=== PATIENT | male | born 1950 | race Two or more races ===

== ENCOUNTER 2016-10-05 22:39 | Emergency (ER) | payer SELFPAY ==
--- NOTE | ~2016-10-05 | ER ---
PATIENT'S NAME: RUMA MAYBERRY [facility] AGE: 65 Y [address] ROOM: [place], [place] [address] LOCATION: ED ADMIT DATE: 10/05/2016 ER/Outpatient Report DISCHARGE DATE: 10/06/2016 FAMILY PHYSICIAN: PHYSICIAN, NO ATTENDING PHYSICIAN: Janet Jacobo HISTORY OF PRESENT ILLNESS: The patient was initially seen by, KALPESH Yates, please refer to her dictation. At midnight, I assumed care at her shift change. History was reviewed with the patient and family. Physical exam was confirmed. His pain was better after he had received fentanyl. The patient has had a pain in right side of his abdomen since Monday. It got worse 1 hour ago all along the right side of his abdomen. He has had nausea and vomited x1. No diarrhea. No constipation. Last bowel movement was today and normal. No blood in his stools. No dark, tarry, or black stools. He had similar pain 1 year ago in [place] and was diagnosed with gallstones. Recommended removal of his gallbladder which he declined at that time. He has done well since then. PAST MEDICAL HISTORY: ALLERGIES: NO KNOWN DRUG ALLERGIES. CURRENT MEDICATIONS: No current medications. MEDICAL PROBLEMS: No medical problems SOCIAL HISTORY: The patient lives in [place], arrived here for visiting and planned to be here 1 more week. Tobacco use, denies. Alcohol use, occasional. Drug use, denies. REVIEW OF SYSTEMS: All systems reviewed and negative other than what is noted in the HPI. Specifically, the patient has no chest pain. No cough or shortness of breath and currently his pain is improved from 9 to 4 or 5. SURGERIES: He had previous hernia repair. FAMILY HISTORY: PATIENT'S NAME: RUMA MAYBERRY [facility] AGE: 65 Y [address] ROOM: [place], [place] [address] LOCATION: [facility] ADMIT DATE: 10/05/2016 ER/Outpatient Report DISCHARGE DATE: 10/06/2016 FAMILY PHYSICIAN: PHYSICIAN, OMA ATTENDING PHYSICIAN: Janet Jacobo No pertinent family history. PHYSICAL EXAMINATION: VITAL SIGNS: Weight 100.1 kg, blood pressure 192/117 and on recheck was 183/98. Pulse 92, respirations 18, temperature 98.2, and saturations 94%. GENERAL: A 65-year-old male in obvious distress HEENT: Unremarkable. LUNGS: Clear to auscultation. HEART: Regular rate and rhythm. No murmur, rub, or gallop. ABDOMEN: Bowel sounds present. Soft, slightly distended. No hepatosplenomegaly. No palpable masses. Tender to palpation in the right upper quadrant. No rebound or guarding. No CVA tenderness. SKIN: [place], warm, and dry. No lesions or rashes noted. NEURO: No focal deficit. LABORATORY DATA: Labs were reviewed. Hemoglobin 16.4, hematocrit 46.6, platelets 207, white count 13.6 with 86% neutrophils. Sodium 139, potassium 3.8, chloride 104, CO2 25, BUN 7, creatinine 0.9, blood sugar 198, total bilirubin elevated at 2.2, AST 79, ALT 223, amylase 29, lipase 80. UA negative. IMAGING: CT scan of the abdomen and pelvis with IV contrast, cholelithiasis with mild gallbladder wall thickening. No additional stigmata of cholecystitis and mild dependent atelectasis in both lung bases. IMPRESSION AND PLAN: Cholelithiasis with persistent pain and elevated liver enzymes. The patient would not like to stay here in the hospital, but does agree to go home. Clear liquids as tolerated. [place] 5/325 one p.o. q.4-6 hours p.r.n. pain, dispensed 15 with 0 refills. Zofran 4 mg q.6 hours p.r.n. nausea. Follow up at the [facility] later this morning with General Surgery. The patient and his family understand and agree. They do understand the risks with his elevated liver enzymes of this becoming a more emergent problem and any complications and all questions have been answered. JANET JACOBO MD CAR/modl /[id number] d: 10/06/16 0604 t: 10/16/1630, OUTPATIENT REPORT
--- NOTE | ~2016-10-05 | ER ---
PATIENT'S NAME: RUMA MAYBERRY [facility] AGE: 65 Y [address] ROOM: [place] [address] LOCATION: [facility] ADMIT DATE: 10/05/2016 ER/Outpatient Report DISCHARGE DATE: 10/06/2016 FAMILY PHYSICIAN: PHYSICIAN, NO ATTENDING PHYSICIAN: Janet Jacobo TIME OF PATIENT ARRIVAL: 2239 hours. TIME OF PATIENT EVALUATION: 2324 hours. CHIEF COMPLAINT: Right-sided abdominal pain. HISTORY OF PRESENT ILLNESS: This is a 65-year-old [id number] male, who presents to the ER, who states he has been having some abdominal pain that started on Monday and worsened an hour prior to arrival. The patient states he just came here from [place] and arrived a few days ago. The patient states that he had a similar episode of pain like this a year ago down in [place], and he took some medication which improved his symptoms. The patient has not been running any fevers at home and has had no troubles with bowel movements or urination. ALLERGIES: NO KNOWN ALLERGIES. MEDICATIONS: None. PAST MEDICAL HISTORY: Negative. PAST SURGICAL HISTORY: None. SOCIAL HISTORY: He drinks alcohol occasionally. Denies any smoking use. REVIEW OF SYSTEMS: A 10-point review of systems was completed and was negative with the exception of those discussed in the HPI. PHYSICAL EXAMINATION: VITAL SIGNS: Weight 100.1 kg taken, blood pressure is 192/117, pulse 92, PATIENT'S NAME: RUMA MAYBERRY [facility] AGE: 65 Y [address] ROOM: [place] [address] LOCATION: [facility] ADMIT DATE: 10/05/2016 ER/Outpatient Report DISCHARGE DATE: 10/06/2016 FAMILY PHYSICIAN: PHYSICIAN, NO ATTENDING PHYSICIAN: Janet Jacobo respirations 18, temperature 99.2 degrees tympanically, and saturation is 94% on room air. [place] Coma Score is 15. GENERAL: Alert, calm, well-developed male in tptw-[id number] distress. HEENT. Head: Normocephalic. Eyes: Pupils are equal and reactive to light. He does display moist mucous membranes. LUNGS: Clear to auscultation bilaterally. No wheezes or crackles are heard. HEART: Regular rate and rhythm. ABDOMEN: Soft. He does have tenderness with palpation over the entire right side of his abdomen. He has no guarding. No rebound tenderness. He has good bowel sounds throughout. No masses are palpated. EXTREMITIES: No clubbing or cyanosis. He does have full range of motion of all limbs. LABORATORY DATA: Labs and CT are all pending. EMERGENCY ROOM COURSE: I am going to turn the care of the patient over to Dr. Jacobo at this time secondary to shift change. During his ER course here with me, I did start an IV with him and did order fentanyl and IV fluids for the patient. The patient and the patient's family understand and agree with care. DENNIS JOHNSON PA-C FOR MD DEB DAMON/franck /[id number] d: t: 10/09/16 1901, OUTPATIENT REPORT
[2016-10-06 00:10] LABS: BASOPHIL % 0.3 %; EOSINOPHIL % 0.3 %; HEMATOCRIT 46.6 % (37.0-53.0); HEMOGLOBIN 16.4 g/dL (11.0-16.0); IMMATURE GRANULOCYTE # 0.1 K/uL (0.0-0.3); IMMATURE GRANULOCYTE % 0.5 %; LYMPHOCYTE # 1.1 K/uL (0.8-4.0); LYMPHOCYTE % 7.9 %; MCH 31.8 pg (27.0-34.0); MCHC 35.2 gm/dL (32.0-36.5); MCV 90.3 fl (83.0-98.0); MONOCYTE # 0.6 K/uL (0.0-1.0); MONOCYTE % 4.6 %; MPV 10.4 fl (9.4-12.4); NEUTROPHIL # (ANC) 11.8 K/uL (1.4-9.0); NEUTROPHIL % 86.4 %; NRBC % 0 /100WBC (0-0.00); PLATELET COUNT 207 K/uL (150-450); RBC 5.16 M/uL (3.50-5.50); RDW-CV 13.1 % (11.9-14.6); WBC 13.6 K/uL (4.0-11.0)
[2016-10-06 00:27] LABS: ALBUMIN 3.5 gm/dL (3.5-5.0); ALK PHOS 123 IU/L (33-138); ALT 223 IU/L (12-78); ANION GAP 13.8 (10.0-19.0); AST 79 IU/L (10-40); BLOOD UREA NITROGEN 7 mg/dL (6-24); CALCIUM 9.1 mg/dL (8.5-10.5); CHLORIDE 104 mMol/L (96-110); CO2 25 mMol/L (22-32); CREATININE 0.9 mg/dL (0.6-1.3); ESTIMATED GFR (MDRD EQUATION) > 60; POTASSIUM 3.8 mMol/L (3.7-5.1); SODIUM 139 mMol/L (135-145); TOTAL BILIRUBIN 2.2 mg/dL (0.0-1.5); TOTAL PROTEIN 7.7 g/dL (6.0-8.4)
[2016-10-06 00:38] LABS: BILIRUBIN URINE NEGATIVE (NEGATIVE); BLOOD URINE NEGATIVE /UL (NEGATIVE); GLUCOSE URINE 50 mg/dL (NEGATIVE); KETONE URINE NEGATIVE (NEGATIVE); LEUKOCYTES URINE 25 /UL (NEGATIVE); NITRITE URINE NEGATIVE (NEGATIVE); PROTEIN URINE 100 mg/dL (NEGATIVE); UROBILINOGEN URINE 1 mg/dL (NORMAL)
[2016-10-06 00:40] LABS: COLOR URINE YELLOW (YELLOW); TURBIDITY URINE CLEAR (CLEAR)
[2016-10-06 00:55] LABS: WBC URINE 0-2 #/HPF (NEGATIVE)
[2016-10-06 00:56] LABS: BACTERIA URINE NEGATIVE (NEGATIVE); EPITHELIAL URINE 0-2 #/HPF (NEGATIVE); RBC URINE RARE #/HPF (NEGATIVE)
== END 2016-10-06 01:42 | disposition disaster alternative care site (69) ==
LOC: GMED 22:39
PROVIDERS: Physician Assistant Medical
DX: K80.20 Calculus of gallbladder without cholecystitis without obstruction (principal)
CPT/HCPCS: J2405; J3010; J7030; Q9967

== ENCOUNTER 2016-10-06 05:36 | Inpatient (IN) | payer SELFPAY ==
[~2016-10-06] VITALS: Ht 172 cm; Wt 96.4 kg
--- NOTE | ~2016-10-06 | DS ---
PATIENT'S NAME: GEORGE MABRY [facility] AGE: 65 Y [address] ROOM: [address] [address] LOCATION: [facility] ADMIT DATE: 10/06/2016 Discharge Summary DISCHARGE DATE: 10/09/2016 FAMILY PHYSICIAN: PHYSICIAN, NO ATTENDING PHYSICIAN: Christiano Ferreira V FINAL DIAGNOSES: 1. Acute gangrenous cholecystitis with bile leak. 2. Essential hypertension. 3. Adult-onset diabetes mellitus. 4. Nocturnal hypoxia. 5. Acute hypoxic respiratory failure, resolved. PROCEDURE: He had a lap neena with Dr. Carson. HISTORY OF PRESENT ILLNESS: For details of admission, please see the history and physical dictated by Dr. Ferreira. In short, the patient had presented to the emergency room with severe pain in the right upper quadrant and had decided to go home. The pain worsened and returned; and at that time, he was diagnosed with acute cholecystitis. LABORATORY DATA: On admission, sodium 139, discharge 139; potassium on admit 3.8, discharge 3.9; BUN on admission was 7, discharge 14; creatinine on admission 0.9, discharge 1.2; alk phos on admission 123, 79 on discharge; AST on admission was 79, discharge 51; ALT on admission was 223, 99 at discharge. Cardiac enzymes were negative. Hemoglobin A1c 7.5. White blood cell count on admission was 13.6 with a left shift, on the second hospital day, white blood cell count was 19.2 with 13% bands, hemoglobin at discharge is 15.2, and platelet count 214. RADIOLOGIC DATA: CT scan of the abdomen and pelvis done for right-sided abdominal pain showed cholelithiasis and pericholecystic fluid. He had a 4-mm nodule in the posterior right lung base. Right upper quadrant ultrasound did show evidence of cholelithiasis and gallbladder wall thickening. Chest x-ray done on 2nd hospital day done for hypoxia did show atelectasis. HOSPITAL COURSE: The patient was admitted from the emergency room with a diagnosis of acute cholecystitis. He was admitted and placed on IV antibiotics. He was seen by surgery and felt to be a candidate for surgery. He was taken to the OR and had a lap neena. They did say that his gallbladder had perforated and he did have localized bile peritonitis. He was admitted back to the floor. During the initial day of hospitalization, he had accelerated hypertension and his blood pressures were very difficult to control and required numerous IV medications. Finally, did have nitro paste placed, which did help with his blood pressures. On hospital day, he was PATIENT'S NAME: GEORGE MABRY [facility] AGE: 65 Y [address] ROOM: [place] [address] LOCATION: [facility] ADMIT DATE: 10/06/2016 Discharge Summary DISCHARGE DATE: 10/09/2016 FAMILY PHYSICIAN: OMA YUNG ATTENDING PHYSICIAN: Christiano Ferreira V initiated on medication for his blood pressure. His blood sugars were also noted to be elevated. He was started on metformin and hemoglobin A1c was obtained. He did require oxygen on admission at 6 L per nasal cannula. By 2nd hospital day, we had it weaned down to 4 and he was gradually able to be weaned off. He did have an overnight trend oximetry that did indicate he would qualify for home O2; however, the patient is going home to [place]. It was felt that he was stable for discharge and was discharged to home on October 09. His instructions were to follow diabetic diet. We will attempt to get him diabetic education in [place]. He is advised to see his family doctor in [place] upon return. MEDICATIONS: 1. Prinivil 10 mg daily. 2. Glucophage 500 mg twice daily. PROGNOSIS: Overall, prognosis at discharge was good. BRANDEN CATALAN MD LAW/modl /[id number] d: 10/10/16 0003 t: 10/11/16 1451, DISCHARGE SUMMARY
--- NOTE | ~2016-10-06 | CON ---
PATIENT'S NAME: GEORGE MABRY [facility] AGE: 65 Y [address] ROOM: [address] [address] LOCATION: [facility] ADMIT DATE: 10/06/2016 Consultation DISCHARGE DATE: FAMILY PHYSICIAN: PHYSICIAN, NO ATTENDING PHYSICIAN: MADELIN MARAVILLA V DATE OF CONSULTATION: 10/06/2016 REFERRING PHYSICIAN: Paul Pfeiffer MD CHIEF COMPLAINT: Acute cholecystitis. HISTORY OF PRESENT ILLNESS: George is a 65-year-old, male, who was admitted early this morning to the Hospitalist with cholecystitis. The patient states that he ate [place] barbecue around 4:00 p.m. yesterday. Shortly after that, he did not feel well and became nauseated, bloated, and he started having pain in the right side of his abdomen. The pain became worse around 7 p.m. last evening. The patient presented to the emergency room and was subsequently discharged home with oral pain medication. He returned to the emergency room later in the night with recurrent abdominal pain. He was admitted at that time under the Hospitalist and a general surgeon was consulted. At this time, the patient states that he has "something inside that bothers me," but it is much better than it was last night. He denies any history of jaundice, hepatitis, or pancreatitis. He states that he has known of gallbladder issues for about 1 year. He states that a surgeon in [place] wanted to remove it, but the patient declined at that time. He states that he has only had issues one other time. PAST MEDICAL HISTORY: ALLERGIES: NONE. MEDICATIONS: None. ILLNESSES: Hypertension. Denies any history of heart disease or cancer. OPERATIONS: He had a hernia repair done in [place], he is unsure whether any mesh was utilized or not. PATIENT'S NAME: GEORGE MABRY [facility] AGE: 65 Y [address] ROOM: [address] [address] LOCATION: N ADMIT DATE: 10/06/2016 Consultation DISCHARGE DATE: FAMILY PHYSICIAN: PHYSICIAN, NO ATTENDING PHYSICIAN: MADELIN MARAVILLA V SOCIAL HISTORY: The patient is . Just recently moved to [place], [place]. He is a nonsmoker. Occasionally consumes alcohol. FAMILY HISTORY: No family history of cancer. There is family history of diabetes. REVIEW OF SYSTEMS: The patient's weight has been stable. He denies any fevers, but does have chills. Denies any sinus congestion, ear pain, or throat pain. No shortness of breath. No chest pain. His bowels have been working okay prior to admission. He does complain of a slow urine stream. PHYSICAL EXAMINATION: VITAL SIGNS: Temperature is 99.1, blood pressure 187/91, pulse 105, and respirations 18. GENERAL: A 65-year-old, male, who is alert and appropriate with responses. He is non-Nepalese speaking, so the entire history and exam was done with the [facility]. 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 HEENT: Eyes: Sclerae are nonicteric. He does have poor dentition, missing at least half of his teeth. LUNGS: Clear, but he is taking shallow breaths. HEART: Regular. ABDOMEN: Bowel sounds are present. Abdomen is mildly distended, very tender in the right upper quadrant. He has a scar at the umbilicus consistent with his prior hernia repair. LABORATORY DATA: Lab work shows white blood cell count 13.6, hemoglobin 16.4, hematocrit 46.6, and platelets 207. Sodium 139, potassium 3.8, chloride 104, CO2 of 25, BUN 7, creatinine 0.9, and glucose 198. Total bilirubin 2.2, alkaline phosphatase 123, AST 79, ALT 223, amylase 29, and lipase 80. Ultrasound showed gallstones with mild gallbladder wall thickening. No pericholecystic fluid. Common bile duct was within normal limits. CT showed gallstones, small amount of pericholecystic fluid, and an incidental 4-mm noncalcified lung nodule with followup recommended. ASSESSMENT: A 65-year-old male with, 1. Acute cholecystitis. 2. Hypertension. PLAN: I discussed the findings with the patient and his family through the [facility]. Translation System. I discussed recommendations for removal of the PATIENT'S NAME: GEORGE MABRY [facility] AGE: 65 Y [address] ROOM: [id number] [place], [place] [address] LOCATION: [facility] ADMIT DATE: 10/06/2016 Consultation DISCHARGE DATE: FAMILY PHYSICIAN: PHYSICIAN, NO ATTENDING PHYSICIAN: MADELIN MARAVILLA. Alternatively, we could try to cool this off with antibiotics, but he would be at high risk for recurrence of the cholecystitis. The operation including laparoscopic and open were discussed with expectation for the patient to be discharged home tomorrow if done laparoscopically with return to usual activities within 7-10 days. I discussed risks of bleeding, infection, injury to other structures, etc. The family did ask whether or not it would be reasonable to start antibiotics with plans to return to [place] for the operation. Ultimately, the patient decided that he was having enough pain that he would prefer to just go ahead and proceed here today if possible. I discussed with them that Dr. Carson will be stopping by in the next couple hours to review things and make his recommendations. Tentatively, we will plan to proceed with surgery this afternoon if he agrees with the assessment and plan as documented above. The family was in understanding and agreement with this. I will go ahead and start Mefoxin 1 g IV q.6 hours. He is having significantly elevated blood pressures at this time, which I believe is a combination of his history of hypertension that has been untreated along with inadequate pain control. Again, Dr. Carson will be seeing the patient momentarily, is involved in assessment and plan, and is available for supervision. MONA ROUSE PA-C FOR MD ARIANNA AUGUSTINK/franck /[id number] d: 10/06/161912 t: 10/24/16 0941, CONSULTATION REPORT
--- NOTE | ~2016-10-06 | ER ---
PATIENT'S NAME: RUMA MAYBERRY [facility] AGE: 65 Y [address] ROOM: [place] [address] LOCATION: [facility] ADMIT DATE: 10/06/2016 ER/Outpatient Report DISCHARGE DATE: FAMILY PHYSICIAN: PHYSICIAN, NO ATTENDING PHYSICIAN: Asher Darnell Time of Arrival: 0536 hours. Time of Evaluation: 0539 hours. IDENTIFICATION: A 65-year-old male. CHIEF COMPLAINT: Right-sided abdominal pain. HISTORY OF PRESENT ILLNESS: The patient is a 65-year-old, male from [place] here visiting arrived a few days ago who presents with right-sided abdominal pain. He was seen here last evening at 2257 hours and discharged. Please refer to that dictation. The patient took the oral pain medication and is again having severe pain like he did when he came in earlier. The patient denies chest pain. PAST MEDICAL HISTORY: ALLERGIES: NO KNOWN DRUG ALLERGIES. CURRENT MEDICATIONS: Denies. MEDICAL PROBLEMS: Denies. Other than he has a history of cholelithiasis, diagnosed 1 year ago. PREVIOUS SURGERIES: Hernia repair. SOCIAL HISTORY: The patient is from [place]. Tobacco use, denies. Alcohol use, occasional. Drug use, denies. REVIEW OF SYSTEMS: All systems reviewed and negative other than what is noted in the HPI. He has had nausea and vomiting. No diarrhea. No constipation. No blood in his stools. No dark, tarry, or black stools. PATIENT'S NAME: RUMA MAYBERRY [facility] AGE: 65 Y [address] ROOM: [place] [address] LOCATION: [facility] ADMIT DATE: 10/06/2016 ER/Outpatient Report DISCHARGE DATE: FAMILY PHYSICIAN: PHYSICIAN, OMA ATTENDING PHYSICIAN: Asher Darnell PHYSICAL EXAMINATION: VITAL SIGNS: Weight 100.1 kg, blood pressure 224/130, pulse 102, respirations 20, temperature 98.4, and saturations 92%. GENERAL: A 65-year-old male in obvious distress. HEENT: Unremarkable. LUNGS: Clear to auscultation. HEART: Regular rate and rhythm. ABDOMEN: Distended. Hypoactive bowel sounds. Tender to palpation in the right. ABDOMEN: No rebound or guarding. No CVA tenderness. SKIN: [place], warm, and dry. No lesions or rashes noted. NEURO: No focal deficit. LABORATORY DATA: Lab work was not repeated at this time. Lab work from earlier last night revealed a blood sugar of 198, total bilirubin 2.2, AST 79, ALT 223. Amylase and lipase are normal. Cardiac enzymes are pending at this time. White count was 13.6 with a normal differential. IMAGING: Upper quadrant ultrasound has been ordered and is pending at this time. CT scan though from last night revealed cholelithiasis with mild gallbladder wall thickening, mild dependent atelectasis at both lung bases and an incidental bilateral renal cysts. IMPRESSION AND PLAN: 1. Acute cholecystitis with persistent abdominal pain, elevated liver enzymes and elevated white count. The patient will be admitted per Dr. Ferreira, hospitalist and Surgery will provide consultation, Dr. Pfeiffer, was notified. Fentanyl and Zofran are being used for pain control in the emergency room and the ultrasound is pending at this time. 2. Hypertension. 3. Elevated blood sugar on previous labs. No history of diabetes. 4. Dependent atelectasis at both lung bases. 5. Bilateral renal cysts. ASHER DARNELL MD CAR/modl /[id number] d: 10/06/16 0625 t: 10/16/16 0630, OUTPATIENT REPORT
--- NOTE | ~2016-10-06 | OR ---
PATIENT'S NAME: RUMA MAYBERRY [facility] AGE: 65 Y [address] ROOM: [place] [address] LOCATION: [facility] ADMIT DATE: 10/06/2016 OR/Procedure Report DISCHARGE DATE: FAMILY PHYSICIAN: PHYSICIAN, NO ATTENDING PHYSICIAN: MADELIN MARAVILLA V SURGEON: Billy Carson MD TECHNICIAN TRAINEE: Fannie Mckenna PA-C. DATE OF PROCEDURE: 10/06/2016 POSTOPERATIVE DIAGNOSIS: Cholelithiasis with cholecystitis. POSTOPERATIVE DIAGNOSES: 1. Cholelithiasis with acute and chronic cholecystitis. 2. Gallbladder perforation with localized bile peritonitis. PROCEDURE PERFORMED: Laparoscopic cholecystectomy. ANESTHESIA: General endotracheal. ESTIMATED BLOOD LOSS: 20 mL. SPECIMEN: Gallbladder and stones. REASON FOR PROCEDURE: The patient is a 65-year-old gentleman who is just up here from [place]. He apparently has had known gallbladder problems in the past. Just for the past day though he had much more severe right upper quadrant pain. A CT scan and ultrasound showed cholelithiasis with cholecystitis, but no evidence of duct dilatation. He did have some mild elevation of his liver function tests. Due to his persistent pain, we elected to proceed with cholecystectomy. The risks and benefits were discussed through the senior production supervisor. FINDINGS: The patient did have some acute and chronic cholecystitis, though no obvious gallbladder necrosis. It was quite unusual though in that we found a 5 mm perforation in the mid portion of the gallbladder with considerable bile around the liver and right upper quadrant of the abdomen. The cystic duct was normal in size. PROCEDURE IN DETAIL: The patient was taken to the operating suite and placed in the supine position. After general endotracheal anesthesia was obtained, the abdomen was prepped with ChloraPrep and sterilely draped. Marcaine was infiltrated into the incision sites. A 2 cm infraumbilical incision was made in his previous scar. The fascia was elevated and a Veress needle was used to obtain a pneumoperitoneum. An 11 mm trocar was then passed across the abdominal wall. Three 5 mm subcostal trocars were all placed under direct PATIENT'S NAME: RUMA MAYBERRY [facility] AGE: 65 Y [address] ROOM: [place] [address] LOCATION: [facility] ADMIT DATE: 10/06/2016 OR/Procedure Report DISCHARGE DATE: FAMILY PHYSICIAN: PHYSICIAN, NO ATTENDING PHYSICIAN: MADELIN MARAVILLA. The patient was noted to have a moderate amount of bilious appearing fluid up around the liver and in the right upper quadrant of the abdomen. There was also some fibrosis and reaction from the bile. We went ahead and grasped the fundus of the gallbladder. The gallbladder was not tense, it was not particularly thick walled but did show some chronic inflammation. As we elevated the fundus though we could see a clear perforation in the mid portion of the gallbladder. The reason for the perforation is unclear. There is no obvious mass associated with it. We went ahead and placed a second grasper on the infundibulum. We carefully dissected through the neck area the gallbladder. The cystic artery was stapled and then divided with cautery. The cystic duct was stapled proximally and distally and divided with scissors. The gallbladder was mobilized free of the liver bed. There was an unusual amount of chronic fibrosis to the liver bed, but overall we were able to free up the gallbladder fairly well. We then spent some time irrigating and washing out the right upper quadrant. There were no signs of any ongoing bleeding or obvious bile leak. I did leave a 15-Japanese Sridhar drain in the right upper quadrant and brought this out through the more lateral trocar site. This was then sutured in place with a Prolene suture. The rest of the trocars were withdrawn, and the pneumoperitoneum was evacuated. The fascia at the umbilicus was closed with a [id number]-fr-[id number] Vicryl suture. The skin incisions were all closed with subcuticular Monocryls. POSTPROCEDURE PLAN: The patient will be sent to recovery and back to the floor. I think we will just keep him on liquids initially as I am afraid he may end up with a little bit of an ileus. We are going to monitor the output from the drain, and we will plan on keeping him on IV antibiotics for few days. We will follow up on the pathology report to make sure there was no malignancy associated with the perforation. MD VALERIO AUGUSTIN/franck /[id number] d: 10/06/16 2238 t: 10/10/16 1041, OPERATIVE SUMMARY
--- NOTE | ~2016-10-06 | PUL ---
PATIENT'S NAME: GEORGE MABRY [facility] AGE: 65 Y [address] ROOM: [address] [address] [place] [facility] [place] DATE: 10/06/2016 Pulmonary DISCHARGE DATE: 10/09/2016 FAMILY PHYSICIAN: PHYSICIAN, NO ATTENDING PHYSICIAN: Christiano Ferreira V NAME OF PROCEDURE: Overnight Pulse Oximetry DATE OF PROCEDURE: October 08 to October 09, 2016 REASON FOR EXAM: Nocturnal hypoxemia RESULTS: The test was performed on room air. The recording time was 8 hours, 23 minutes and 16 seconds, with a total valid sampling time of 8 hours, 9 minutes, and 40 seconds. The highest pulse was 102, lowest pulse was 73, with a mean pulse of 86. The highest SpO2 was 93%, lowest SpO2 was 83%, with a mean SpO2 of 89.7%. The patient spent 32 minutes and 40 seconds with SpO2 less than 89%, representing 6.7% of the total sleep time. The desaturation event index was normal at 2. PHYSICIAN INTERPRETATION: The patient has evidence of significant nocturnal hypoxia and would qualify for supplemental oxygen as per Medicare criteria. MD EFRAIN ABAD/justin /[id number] dtt: 10/11/16 1311 , RADHA FORDE dtd: 10/10/16 1326
--- NOTE | ~2016-10-06 | HP ---
PATIENT'S NAME: RUMA MAYBERRY [facility] AGE: 65 Y [address] ROOM: [place] [address] LOCATION: [facility] ADMIT DATE: 10/06/2016 History & Physical DISCHARGE DATE: FAMILY PHYSICIAN: PHYSICIAN, NO ATTENDING PHYSICIAN: MADELIN MARAVILLA V DATE OF SERVICE: CHIEF COMPLAINT: Abdominal pain. HISTORY OF PRESENT ILLNESS: The patient is a 65-year-old male, who was seen in the ER last night. At that point, he presented with right upper quadrant pain, nausea, and was found to have transaminitis as well as thickened gallbladder on the CAT scan. The patient elected to go home with some pain control, but returned this morning with poor symptom control of his pain. The case was communicated with General Surgery by the ER attending and a hospitalist admission was requested. At this point, the patient denies any shortness of breath, chest pain, or palpitations. He also denies any past medical history. His only complaint is right upper quadrant pain. At this point, ultrasound has been done, but the results are still not available. REVIEW OF SYSTEMS: All systems have been reviewed and negative aside from pertinent positives as mentioned above. PAST MEDICAL HISTORY: The patient denies any. CURRENT MEDICATIONS: The patient denies any. FAMILY HISTORY: The patient denies any pertinent medical history. SOCIAL HISTORY: The patient is not a smoker and sparsely uses alcohol. PHYSICAL EXAMINATION: VITAL SIGNS: Blood pressure 200/100, heart rate is 90, saturating 96% on room air, he is afebrile, respirations are 20. PATIENT'S NAME: GEORGE MABRY [facility] AGE: 65 Y [address] ROOM: [address] [address] LOCATION: [facility] ADMIT DATE: 10/06/2016 History & Physical DISCHARGE DATE: FAMILY PHYSICIAN: PHYSICIAN, NO ATTENDING PHYSICIAN: MADELIN MARAVILLA V GENERAL: Appears as well-developed, well-nourished elderly male, in no acute distress. NEUROLOGIC: Nonfocal. Exam shows pupils are equal and reactive to light. LYMPHATICS: No cervical lymphadenopathy. ENDOCRINE: No thyromegaly. LUNGS: Clear to auscultation. HEART: Rate is slightly tachycardic and regular. GI: Abdomen is soft. There is right upper quadrant tenderness with positive Hutchison sign. No guarding or are rebound. VASCULAR: 2+ pedal pulses. MUSCULOSKELETAL: Unremarkable. SKIN: Warm and dry. PSYCHIATRIC: Reveals appropriate mood, cognition, and affect. LABORATORY DATA: Studies from the ER are significant for an alkaline phosphatase of 123, AST 79, ALT 223. Bilirubin is 2.0. White count is 13.6, hemoglobin is 16.4, platelets are 207. Urinalysis is remarkable for 100 of protein and 50 of glucose. ASSESSMENT AND PLAN: This is a 65-year-old male with: 1. Presumed cholecystitis. He will be admitted to the Hospitalist Service. He will be made n.p.o. We will provide him with IV hydration and symptomatic support. We will expect a general surgery evaluation and cholecystectomy, unless common bile duct dilatation is noted on the ultrasound. 2. Accelerated hypertension. Hopefully, this will be controlled with pain control, but we will also put the patient on metoprolol in preparation for surgery. 3. Additional management will depend on clinical course. Time dedicated to this patient's encounter is 35 minutes. MD JOSEE RASMUSSEN/franck /[id number] D: 819 T: HISTORY & PHYSICAL
[2016-10-06 06:25] LABS: INR - (THERAPEUTIC) 1.08 (0.92-1.07); PROTIME 11.3 SECONDS (9.8-11.4)
[2016-10-06 06:35] LABS: CPK 72 IU/L (35-332)
--- NOTE | 2016-10-06 14:49 | NUR ---
Significant Event: Admit from ED at 0742. Ambulates with SBA and gaitbelt. Hypertensive most of 170-210's/90-100's, Nitro-bid topical and Appresoline IVP see eMAR for times. Morphine IVP 2mg last at 1157. To [facility] at 1300. Follow up:
--- NOTE | 2016-10-06 18:34 | NUR ---
1522 RECIEVED FROM OR. ELEVATED TEMP OF 102.5 UPON ARRIVAL TO PACU. O2 ON PER SIMPLE MASK AT 10 LITERS AND HE IS SATING 91%. 1535 INCREASING O2 DEMANDS INCREASED O2 TO 15 LITERS. PATIENT CONTINUES TO REST AND HAS NOT WOKE UP. HE DOES RESPOND TO PAINFUL STIMULUS. [address] CATALAN AND UPDATED HER R/T PATIENT CONDITION AND INCREASED O2 DEMANDS. ORDERS RECIEVED. 1700 ABLE TO DECREASE O2 AFTER BREATHING TREATMENT. ORAL TYLENOL GIVEN FOR ELEVATED TEMP. 170 REPORT CALLED TO SOPHIE BA ON
[2016-10-07 04:30] LABS: HEMOGLOBIN 14.2 g/dL (11.0-16.0); MCH 32.3 pg (27.0-34.0); MCHC 34.6 gm/dL (32.0-36.5); MCV 93.2 fl (83.0-98.0); MPV 10.8 fl (9.4-12.4); PLATELET COUNT 182 K/uL (150-450); RDW-CV 13.6 % (11.9-14.6)
[2016-10-07 04:31] LABS: WBC 19.2 K/uL (4.0-11.0)
[2016-10-07 04:48] LABS: ALBUMIN 2.6 gm/dL (3.5-5.0); ALK PHOS 80 IU/L (33-138); ALT 116 IU/L (12-78); AST 54 IU/L (10-40); CALCIUM 8.3 mg/dL (8.5-10.5); CHLORIDE 108 mMol/L (96-110); CO2 25 mMol/L (22-32); CREATININE 0.9 mg/dL (0.6-1.3); ESTIMATED GFR (MDRD EQUATION) > 60; SODIUM 140 mMol/L (135-145); TOTAL BILIRUBIN 1.8 mg/dL (0.0-1.5); TOTAL PROTEIN 6.4 g/dL (6.0-8.4)
[2016-10-07 04:58] LABS: BLOOD UREA NITROGEN 11 mg/dL (6-24)
--- NOTE | 2016-10-07 05:00 | NUR ---
Significant Event: A/O X 3. PATIENT IS [place] SPEAKING, DAUGHTER TRANLATED EARLIER IN SHIFT. HAS BILATERAL CALF PNEUMATICS ON. HAS FOUR DRSGS TO ABDOMEN. 1 AT UMBILICAL IS CLEAN AND DRY, TWO WITH SMALL MARKED DRAINAGE AND 1 SATURATED WITH AURORA DRAIN. AURORA DRAIN EMPTIED 60ML FLUID BILE COLOR. INCENTIVE USAGE 750-1000. AMBULATED IN HALLS WITH 2 ASSIST, DID WELL. AT FIRST PART OF SHIFT PAIN RATE 3-4 BUT TOLERABLE. LATER DENIES PAIN. NO NAUSEA, NO FLATUS PASSED. FAMILY STAYED THE NOC IN ROOM. HR TACHY FIRST PART OF SHIFT 100-106. BP 147/74. LATER IN SHIFT BP 122/70, HR 86, SATS 94% 6 LITER OF 02. RESP 24. VOIDED X 3 IN URINAL GOOD AMOUNTS. GETS NITRO PASTE TO CHEST Q 6 HR. Follow up:
[2016-10-07 05:45] LABS: ABSOLUTE NEUTROPHIL CT (ANC) 17.7 K/uL (1.4-9.0); BANDED NEUTROPHIL # 2.5 K/uL (0.0-0.1); BANDED NEUTROPHILS % 13 %; LYMPHOCYTE # 1.2 K/uL (0.8-4.0); LYMPHOCYTE % 6 %; MONOCYTE # 0.4 K/uL (0.0-1.0); SEGMENTED NEUTROPHIL # 15.2 K/uL (1.4-9.0); SEGMENTED NEUTROPHIL % 79 %
--- NOTE | 2016-10-07 14:00 | NUR ---
SPOKE TO PATIENT'S SPOUSE AND DAUGHTER GEORGE IS DOWN FOR CHEST XRAY. INTRODUCED CM AND OUR ROLE WITH HELP OF [employer] INTERPET. PATIENT AND HIS SPOUSE LIVE IN [place] AND THEY AER HERE VISTING FAMILY WHEN GEORGE GOT SICK. PATIENT'S SPOUSE VOICES CONERNS ABOUT GEORGE NOT HAVING INSURANCE. I TOLD HER THAT WE CAN GIVE THEM A FINCIAL ASSIT FORM THAT THEY CAN COMPLETE. THEY ARE IN AGREEMENT TO THIS. THEY DENIE ANY OTHER NEEDS. I GAVE PATIENT'S SPOUSE A FINICAL ASSIT FORM IN GREEK WHICH IS THEIR PRIMARY LANGUAGE.
--- NOTE | 2016-10-07 14:38 | NUR ---
Significant Event: AOx3. Only finnish speaking. Family speaks little danish. Have been borrowing the language line from [employer] when needed. X4 dressings to abdomen. Old drainage. AURORA drain intact. Ambulated in halls. Denies pain. Liquid diet. Flatus passed with no bowel movement. Hypertensive 170's systolic. Gave apresolive IV x1. Had chest x-ray this afternoon. On 4L O2 at %91. Nitro paste Q6hrs. Family at bedside. Follow up:
--- NOTE | 2016-10-08 04:03 | NUR ---
Patient alert and orient, is only sri lankan speaking daughter in room translates, dressings to abdomen are intact and have drainage present, no new drainage noted this shift, ambulates well standby assist, 50ml out of AURORA drain, currently on 5L due to desaturation when sleeping will need order for trend ox to be done tonight, has rested well
[2016-10-08 04:26] LABS: BASOPHIL % 0.3 %; EOSINOPHIL % 0.3 %; HEMATOCRIT 42.4 % (37.0-53.0); HEMOGLOBIN 14.5 g/dL (11.0-16.0); IMMATURE GRANULOCYTE # 0.1 K/uL (0.0-0.3); IMMATURE GRANULOCYTE % 0.4 %; LYMPHOCYTE # 1.5 K/uL (0.8-4.0); LYMPHOCYTE % 10.2 %; MCHC 34.2 gm/dL (32.0-36.5); MCV 93.6 fl (83.0-98.0); MONOCYTE # 0.7 K/uL (0.0-1.0); MONOCYTE % 4.9 %; MPV 10.7 fl (9.4-12.4); NEUTROPHIL # (ANC) 12.1 K/uL (1.4-9.0); NEUTROPHIL % 83.9 %; NRBC % 0 /100WBC (0-0.00); PLATELET COUNT 203 K/uL (150-450); RBC 4.53 M/uL (3.50-5.50); RDW-CV 13.6 % (11.9-14.6); WBC 14.4 K/uL (4.0-11.0)
[2016-10-08 04:45] LABS: ALBUMIN 2.6 gm/dL (3.5-5.0); ALK PHOS 79 IU/L (33-138); ALT 99 IU/L (12-78); ANION GAP 12.9 (10.0-19.0); AST 51 IU/L (10-40); BLOOD UREA NITROGEN 13 mg/dL (6-24); CALCIUM 8.3 mg/dL (8.5-10.5); CHLORIDE 107 mMol/L (96-110); CO2 25 mMol/L (22-32); CREATININE 0.8 mg/dL (0.6-1.3); ESTIMATED GFR (MDRD EQUATION) > 60; MAGNESIUM 2.3 mg/dL (1.8-2.6); POTASSIUM 3.9 mMol/L (3.7-5.1); SODIUM 141 mMol/L (135-145); TOTAL PROTEIN 6.7 g/dL (6.0-8.4)
[2016-10-08 04:47] LABS: TOTAL BILIRUBIN 1.1 mg/dL (0.0-1.5)
--- NOTE | 2016-10-08 15:21 | NUR ---
pt tis alert and oriented. does not understand any luxembourgish. daughter in the room and she can traslate some. have been using the [employer] to translate. pt voids well. 02 at 5 lpm/nc last night. has been off the 02 today. he needs a trend ox tonight. layne drain intact. 3 bm's today. dressings to abdomen. ambulates well with standby assist.
--- NOTE | 2016-10-08 16:00 | NUR ---
Significant Event: pt alert and oriented. dont not speak any nigerien. family in the room can help some. kgii used for for rounds and when the dr comes. it was taken to [facility] for an admit this afternoon. layne drain had 30 cc out. bm's x 3. voids well. dressings to abd intact. drain site dressing is lose. pt advanced to liquid diet today. brendan well. o2 off this shift. needs trend oximeter tonight. family stays in the room. Follow up:
--- NOTE | 2016-10-08 16:00 | NUR ---
pt transfered down to [facility] and report given to peter
--- NOTE | 2016-10-09 04:23 | NUR ---
Significant Event: Pt A&Ox3; Botswanan-speaking only. VS stable, remains on RA. Had ox trend overnight. Ambulates SBA w/gb. AURORA to LLQ, had 20ml out. Has had multiple BM's yesterday. No c/o pain. Currently on liquid diet. PIV in LFA, SL; int mefoxin. Possible d/c home today. Follow up: Continue plan of care.
[2016-10-09 05:39] LABS: BASOPHIL % 0.4 %; EOSINOPHIL # 0.1 K/uL (0.0-0.5); EOSINOPHIL % 1.2 %; HEMATOCRIT 44.4 % (37.0-53.0); HEMOGLOBIN 15.2 g/dL (11.0-16.0); IMMATURE GRANULOCYTE # 0.1 K/uL (0.0-0.3); IMMATURE GRANULOCYTE % 0.9 %; LYMPHOCYTE # 1.6 K/uL (0.8-4.0); LYMPHOCYTE % 14.5 %; MCH 31.9 pg (27.0-34.0); MCHC 34.2 gm/dL (32.0-36.5); MCV 93.3 fl (83.0-98.0); MONOCYTE # 0.7 K/uL (0.0-1.0); MONOCYTE % 6.6 %; MPV 10.9 fl (9.4-12.4); NEUTROPHIL # (ANC) 8.5 K/uL (1.4-9.0); NEUTROPHIL % 76.4 %; NRBC % 0 /100WBC (0-0.00); PLATELET COUNT 214 K/uL (150-450); RBC 4.76 M/uL (3.50-5.50); RDW-CV 13.3 % (11.9-14.6); WBC 11.1 K/uL (4.0-11.0)
[2016-10-09 05:55] LABS: ALBUMIN 2.6 gm/dL (3.5-5.0); ANION GAP 13.9 (10.0-19.0); BLOOD UREA NITROGEN 14 mg/dL (6-24); CALCIUM 8.4 mg/dL (8.5-10.5); CHLORIDE 106 mMol/L (96-110); CO2 23 mMol/L (22-32); CREATININE 1.2 mg/dL (0.6-1.3); ESTIMATED GFR (MDRD EQUATION) > 60; POTASSIUM 3.9 mMol/L (3.7-5.1); SODIUM 139 mMol/L (135-145)
[2016-10-09] MEDS ORDERED: PRINIVIL OR ZES10 MG PO (13:42)
[2016-10-09] MEDS ORDERED: GLUCOPHAGE500 MG PO (13:42)
[2016-10-09] MEDS ORDERED: NORCO 5-325 TA1 EACH PO (13:44)
== END 2016-10-09 15:00 | disposition disaster alternative care site (69) | DRG 417 ==
LOC: GMED 05:36 → G3N 06:45 → GMSU 06:45
PROVIDERS: Family Medicine; Internal Medicine; Physician Assistant; ADMIT Internal Medicine
PROC: 0FT44ZZ Resection of Gallbladder, Percutaneous Endoscopic Approach (ICD-10-PCS; principal; 2016-10-06)
DX: K80.12 Calculus of gallbladder with acute and chronic cholecystitis without obstruction (principal); K65.3 Choleperitonitis; J96.01 Acute respiratory failure with hypoxia; K82.2 Perforation of gallbladder; G47.36 Sleep related hypoventilation in conditions classified elsewhere; J98.11 Atelectasis; I10 Essential (primary) hypertension; E11.9 Type 2 diabetes mellitus without complications; Z79.84 Long term (current) use of oral hypoglycemic drugs; R91.1 Solitary pulmonary nodule; R39.198 Other difficulties with micturition
CPT/HCPCS: J0360; J0694; J1940; J2270; J2405; J3010; J7030; J7040; J7050